=== PATIENT | female | born 1950 | race Caucasian/White ===

== ENCOUNTER 2022-10-28 11:44 | Day surgery (SDC) | payer MEDICARE | END 2022-10-28 13:33 | disposition home or self-care (01) | LOC: SDC-PAIN 11:44 | PROVIDERS: ATTEND Psychiatry & Neurology Pain Medicine | DX: Z53.8 Procedure and treatment not carried out for other reasons (principal) ==

== ENCOUNTER 2022-11-24 10:52 | Day surgery (SDC) | payer MEDICARE ==
[2022-11-24] MEDS ORDERED: Sodium Chloride 0.9(Preservative Free) 10 ML IJ ONE (10:53)
[2022-11-24] MEDS ORDERED: Depo-Medrol 40 MG/ML IM ONE (10:53)
[2022-11-24] MEDS ORDERED: DIPRIVAN 200 MG/20 ML IV ONE (12:11)
--- NOTE | 2022-11-24 13:10 | XRAY ---
Indication: Caudal SUSIE. Intraoperative fluoroscopy provided for 19 seconds. 2 digital spot images submitted for interpretation demonstrates caudal needle tip projecting mid sacrum. Small amount of contrast injected for needle tip placement. Correlate with intraoperative findings/report.
[2022-11-24] MEDS ORDERED: Lactated Ringers 1,000 ML IV ONE (13:37)
--- NOTE | 2022-11-24 14:51 | XRAY ---
19 seconds of fluoroscopy was used in surgery for a caudal SUSIE.
== END 2022-11-24 12:33 | disposition home or self-care (01) ==
LOC: SDC-PAIN 10:52
PROVIDERS: ATTEND Psychiatry & Neurology Pain Medicine
DX: M54.16 Radiculopathy, lumbar region (principal)
CPT/HCPCS: 62323; 72220; 77003; J1030; J2704; Q9966

== ENCOUNTER 2023-03-02 12:19 | Day surgery (SDC) | payer MEDICARE ==
[2023-03-02] MEDS ORDERED: Depo-Medrol 40 MG/ML IM ONE (12:20)
[2023-03-02] MEDS ORDERED: BUPIVACAINE 0.5% VIAL IJ ONE (12:20)
[2023-03-02] MEDS ORDERED: DIPRIVAN 200 MG/20 ML IV ONE (14:20)
[2023-03-02] MEDS ORDERED: Lactated Ringers 1,000 ML IV ONE (15:06)
--- NOTE | 2023-03-02 20:47 | XRAY ---
Indication: Bilateral SI joint injection. Intraoperative fluoroscopy provided for 16 seconds. 4 digital spot image submitted for interpretation demonstrates posterior needle tip projecting over the expected left and right SI joint. Correlate with intraoperative findings/report.
--- NOTE | 2023-03-02 21:43 | XRAY ---
16 seconds of fluoroscopy was used in surgery for a bilateral sacroiliac joint injection.
== END 2023-03-02 14:43 | disposition home or self-care (01) ==
LOC: SDC-PAIN 12:19
PROVIDERS: ATTEND Psychiatry & Neurology Pain Medicine
DX: M46.1 Sacroiliitis, not elsewhere classified (principal)
CPT/HCPCS: 01992; 27096; 72202; 77002; 99100; G0260; J1030; J2704

== ENCOUNTER 2024-08-08 11:29 | Day surgery (SDC) | payer MEDICARE ==
[2024-08-08] MEDS ORDERED: dexAMETHasone sodium phosphate IJ ONE (11:30)
[2024-08-08] MEDS ORDERED: Sodium Chloride 0.9(Preservative Free) 10 ML IJ ONE (11:30)
[2024-08-08] MEDS ORDERED: Lactated Ringers 1,000 ML IV ONE (14:39)
[2024-08-08] MEDS ORDERED: propofoL IV ONE (15:09)
[2024-08-08] MEDS ORDERED: MORPHINE SULFATE 2 MG INJ ONE (15:34)
--- NOTE | 2024-08-08 16:41 | XRAY ---
52 seconds of fluoroscopy was used in surgery for a left L3-L5 transforaminal SUSIE.
--- NOTE | 2024-08-10 12:10 | XRAY ---
52 seconds of fluoroscopy was used in surgery for a left L3-L5 transforaminal SUSIE.
== END 2024-08-08 16:00 | disposition home or self-care (01) ==
LOC: SDC-PAIN 11:29
PROVIDERS: ATTEND Psychiatry & Neurology Pain Medicine
DX: M54.16 Radiculopathy, lumbar region (principal)
CPT/HCPCS: 64483; 64484; 72100; J1100; J2270; J2704; Q9966